=== PATIENT | female | born 1950 | race Caucasian/White ===

== ENCOUNTER → 2020-01-18 | Outpatient (CLI) | payer MEDICARE, OTHER ==
[2015-01-26 12:51] VITALS: BP 138/81
--- NOTE | 2020-01-18 16:38 | RAD ---
Right foot 3 views INDICATION: Pain FINDINGS: Normal alignment. Normal mineralization with no fracture or aggressive appearing osseous lesions. Surgical changes from previous osteotomy in the first metatarsal and proximal first phalanx are evident with fixation screws across the surgical sites which have since healed. No residual bunion deformity is apparent. Minimal early degenerative changes at the first MTP joint is noted. The soft tissues are unremarkable. 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 No acute or aggressive osseous lesions shown. Electronically signed by: Mary Johnson MD (01/18/2020 4:35 PM) [id number]
== END ==
LOC: DXRAD 15:51
PROVIDERS: ATTEND Family Medicine
DX: M19.071 Primary osteoarthritis, right ankle and foot (principal)
CPT/HCPCS: 73630

== ENCOUNTER → 2020-05-26 | Outpatient (CLI) | payer MEDICARE, OTHER ==
[2015-01-26 12:51] VITALS: BP 138/81
--- NOTE | 2020-05-26 16:04 | RAD ---
EXAM: DUAL ENERGY X-RAY ABSORPTIOMETRY (DEXA). HISTORY: Postmenopausal screening. FINDINGS: The lowest measured T-score is -0.4 in the right femoral neck, based on a bone mineral dens ity of 0.996 g/cm^2. Refer to the worksheets for full detail. No comparison examinations are available. IMPRESSION: Normal. Bone mineral density yields a T-score of -1.0 or greater. Fracture risk is low. FRAX was not calculated. METHODOLOGY: Dual energy x-ray absorptiometry was performed to measure bone mineral density. The foll owing analysis is based on the 2019 Official Positions of the International Society for Clinical Dens itometry: Measurements of the hips and the average of L1-L4 are preferred. When the spine and/or hip cannot be feasibly measured or interpreted, or in the setting of hyperparathyroidism, distal radial bone minera l density may be measured. The lumbar spine T-score is based on the average bone mineral density of L1-L4. In the setting of art ifact or anatomic abnormality, some lumbar levels may be excluded, and the remaining levels used for calculation. A single lumbar level is not used for diagnosis, and if only a single level is available for assessment, another anatomic site will be used to assign a diagnosis. The hip T-score is based on the bone mineral density measurement of the femoral neck or total proxima l femur of either side, whichever is lowest. Bilateral mean values are not used for diagnosis. The forearm T-score is derived from 33% of the distal radius of the nondominant forearm. For postmenopausal and perimenopausal women, and men age 50 or older, of all ethnic groups, T-scores are calculated through comparison of the current measurement with the NHANES III database standard fo r females aged 20-29 years. The lowest T-score of the evaluated anatomic sites is used to a ssign a diagnosis based on the World Health Organization densitometric classification. In premenopausal females and males younger than age 50, a Z-score is calculated based on population s pecific reference data for patient sex and self-reported ethnicity. Electronically signed by: Júnior Toney MD (05/26/2020 4:01 PM) [id number]
--- NOTE | 2020-05-30 09:19 | RAD ---
DATE: 05/26/2020 1:00 PM EXAM: DIGITAL SCREEN BILAT W/CAD HISTORY: Screening COMPARISON: 12/31/2016, 01/30/2018, 01/20/2019 Bilateral CC and MLO views of the breasts were performed. Bilateral breast tomosynthesis was performed in CC and MLO projections. This study was interpreted with the benefit of Computerized Aided Detection (CAD). FINDINGS: Breast Density: HETERO The breast parenchyma Is heterogeneously dense, which could reduce sensitivity of mammography. Breast parenchyma level C No suspicious masses, microcalcifications or architectural distortion is present to suggest malignancy in either breast. The visualized axillae are unremarkable. IMPRESSION: No mammographic evidence of malignancy. BI-RADS CATEGORY: 1 NEGATIVE RECOMMENDED FOLLOW-UP: 12M 12 MONTH FOLLOW-UP Annual screening mammography is recommended, unless clinically indicated sooner based on symptoms or change in physical exam. PQRS compliance statement: Patient information was entered into a reminder system with a target due date for the next mammogram. Mammography is a sensitive method for finding small breast cancers, but it does not detect them all and is not a substitute for careful clinical examination. A negative mammogram does not negate a clinically suspicious finding and should not result in delay in biopsying a clinically suspicious abnormality. "Our facility is accredited by the [employer] Mammography Program."
== END ==
LOC: DXRAD 12:46
PROVIDERS: ATTEND Family Medicine
DX: Z12.31 Encounter for screening mammogram for malignant neoplasm of breast (principal); Z78.0 Asymptomatic menopausal state
CPT/HCPCS: 77067; 77080

== ENCOUNTER → 2020-07-18 | Outpatient (CLI) | payer MEDICARE, OTHER ==
[2015-01-26 12:51] VITALS: BP 138/81
--- NOTE | 2020-07-19 11:44 | RAD ---
XR FOOT_LEFT 3 VIEWS History: Reason: ATTN 5TH METATARSAL REGION / Spl. Instructions: / History: Pain Technique: 3 views left foot. Comparison: None. Findings: Acute left fifth metatarsal base avulsion-type fracture. Postoperative changes to the first proximal phalanx and metatarsal. Normal alignment. Dorsal foot soft tissue swelling. Impression: 1. Acute left fifth metatarsal base avulsion-type fracture. Electronically signed by: Steven Dewitt DO (07/19/2020 11:42 AM) [id number]
== END ==
LOC: DXRAD 15:51
PROVIDERS: ATTEND Family Medicine
DX: S92.355A Nondisplaced fracture of fifth metatarsal bone, left foot, initial encounter for closed fracture (principal); M79.89 Other specified soft tissue disorders; Z98.890 Other specified postprocedural states; X58.XXXA Exposure to other specified factors, initial encounter; Y93.89 Activity, other specified; Y92.89 Other specified places as the place of occurrence of the external cause; Y99.8 Other external cause status
CPT/HCPCS: 73630

== ENCOUNTER → 2021-05-29 | Outpatient (CLI) | payer MEDICARE, OTHER ==
[2015-01-26 12:51] VITALS: BP 138/81
--- NOTE | 2021-05-29 12:43 | RAD ---
INDICATION : Routine Screening. COMPARISON: Multiple prior examinations including January 2019 TECHNIQUE: Standard mammogram screening views of the bilateral breasts were obtained with 3D tomosynt hesis. CAD was utilized. FINDINGS: The breasts are scattered density. No new suspicious left breast mass is seen. Within the right sherita st there is an asymmetry identified on the cc view approximately 6 cm posterior to the nipple within the inferior breast with a possible correlate seen on the MLO view within the inferior breast. This w as not definitely present on prior exam. IMPRESSION: BI-RADS Category 0: Incomplete. Further imaging evaluation is needed. Focal asymmetry is identified w ithin the right posterior inferior breast centrally. Recommend that the patient return for diagnostic mammogram and ultrasound to further assess. The patient was placed into the recall system with a suggested recall date for follow up imaging. Mammography is the most sensitive method for finding small breast cancers, but it does not detect the m all and is not a substitute for careful clinical examination. A negative mammogram does not negate a clinically suspicious finding and should not result in delay in biopsying a clinically suspicious abnormality. Electronically signed by: Alin Collins MD (05/29/2021 12:41 PM) [id number]
== END ==
LOC: MAMMO 10:30
PROVIDERS: ATTEND Family Medicine
DX: Z12.31 Encounter for screening mammogram for malignant neoplasm of breast (principal)
CPT/HCPCS: 77063; 77067

== ENCOUNTER → 2021-06-13 | Outpatient (CLI) | payer MEDICARE, OTHER ==
[2015-01-26 12:51] VITALS: BP 138/81
--- NOTE | 2021-06-13 11:44 | RAD ---
RIGHT DIAGNOSTIC 2-D AND 3-D MAMMOGRAPHY AND BREAST ULTRASOUND History: Abnormal screening mammogram. Comparison: Bilateral mammogram 05/29/2021 and prior years. Technique: Right ML tomosynthesis and spot compression MLO and CC digital mammogram views were obtain ed. Findings: Breast Tissue Density B : There are scattered areas of fibroglandular density. A small mass in the right breast at the 6:00 position does not resolve with additional mammogram view s. The mass is isodense and well-circumscribed. Real-time ultrasound imaging of the right breast is performed. Accounting for the finding on mammogram at the 6:00 position 4 cm from the nipple there are 2 adjacen t cysts measuring in conglomerate 4 x 4 millimeters. Color Doppler interrogation is negative. There a re no abnormal axillary lymph nodes. IMPRESSION: Small mass in the right breast 6:00 position 4 cm from the nipple is found to be 2 adjacent tiny cyst s by ultrasound. Recommend routine mammogram screening. BI-RADS category 2: Benign findings. The images were reviewed with computer-aided detection. Patient information is entered into the reminder system with a target due date for the next screening mammogram. Mammography is the most sensitive method for finding small breast cancers, but it does not detect the m all and is not a substitute for careful clinical examination. A negative mammogram does not negate a clinically suspicious finding and should not result in delay in biopsying a clinically suspicious a bnormality. "Our facility is accredited by the [employer] Mammography Program." Electronically signed by: Adria Silva MD (06/13/2021 11:42 AM) [id number]
== END ==
LOC: MAMMO 10:45
PROVIDERS: ATTEND Family Medicine
DX: N63.13 Unspecified lump in the right breast, lower outer quadrant (principal); N60.01 Solitary cyst of right breast
CPT/HCPCS: 76642; 77065